=== PATIENT | female | born 1985 | race Two or more races ===

== ENCOUNTER 2022-09-18 17:10 | Inpatient (IN) | payer OTHER ==
[~2022-09-18] VITALS: Ht 162.6 cm; Wt 90.2 kg
[2022-09-18] MEDS ORDERED: InsuLIN R (HUMAN) 100 UNITS in SODIUM CHL 0.9% 99 ML IV SCH (17:30)
[2022-09-18] MEDS ORDERED: DEXTROSE (50%) 50ML SYRG IV PRN (17:30)
[2022-09-18] MEDS ORDERED: INSULIN LANTUS (GLARGINE) 1 /0.01ml (100units/ml) SC ONE (17:30)
[2022-09-18 17:51] LABS: Basophils # (auto) 0 10 ^3/uL (0-0.2); Basophils % (auto) 0.5 % (0.0-2.0); Eosinophils # (auto) 0 10 ^3/uL (0-0.8); Eosinophils % (auto) 0.1 % (0.0-7.0); Hematocrit 39.4 % (36.0-46.0); Hemoglobin 13.2 g/dL (12.2-16.2); Lymphocytes # (auto) 0.6 10 ^3/uL (0.4-5.4); Lymphocytes % (auto) 6.8 % (10.0-50.0); Mean Corpuscular Hemoglobin 33.5 pg (28.0-32.0); Mean Corpuscular Hgb Conc. 33.6 g/dL (32.0-36.0); Mean Corpuscular Volume 99.6 fL (80.0-100.0); Monocytes # (auto) 0.7 10 ^3/uL (0-1.3); Monocytes % (auto) 8.3 % (0.0-12.0); Neutrophils # (auto) 7.5 10 ^3/uL (1.6-8.6); Neutrophils % (auto) 84.3 % (37.0-80.0); Red Blood Cells 3.95 10^6/uL (4.0-5.20); Red Cell Distribution Width 18.1 % (11.8-14.3); White Blood Cell 8.9 10^3/uL (4.4-10.8)
[2022-09-18 18:05] LABS: BUN/Creatinine Ratio 8.8 (10.0-20.0); Calcium 9.4 mg/dL (8.5-10.1); Magnesium 2.7 mg/dL (1.6-2.6); Phosphorus 2.1 mg/dL (2.5-4.90)
[2022-09-18] MEDS ORDERED: SODIUM BICARBONATE 8.4 % INJ 50ML VIAL IV ONE (18:15)
[2022-09-18] MEDS ORDERED: SODIUM CHLORIDE 0.9% 2,000 ML IV ONE (18:15)
[2022-09-18 18:33] LABS: Potassium 2.2 mmol/L (3.5-5.1)
[2022-09-18] MEDS: ACCU-CHEK COMFORT CURVE STRIP VI SCH ×3 (18:42→21:51)
[2022-09-18] MEDS ORDERED: POTASSIUM CHL 20 Meq TABLET PO ONE (18:45)
[2022-09-18] MEDS ORDERED: POTASSIUM CHL 20MEQ/100ML 100 ML IV ONE ×3 (18:45→21:45)
[2022-09-18] MEDS: SODIUM CHLORIDE 0.9% 1,000 ML IV SCH ×3 (19:15→22:26)
[2022-09-18] MEDS ORDERED: SODIUM CHLORIDE 0.9% 1,000 ML IV SCH ×2 (21:30→23:30)
[2022-09-18] MEDS ORDERED: POTASSIUM EFFERVESENT TAB 25 MEQ PO ONE ×2 (21:45)
[2022-09-18] MEDS ORDERED: ACETAMINOPHEN 325 MG TAB PO PRN (22:00)
[2022-09-18] MEDS ORDERED: NITROGLYCERIN 0.4 MG SL TAB SL PRN (22:00)
[2022-09-18] MEDS ORDERED: PANTOPRAZOLE 40 MG/10 ML VIAL INJ IV ONE (22:00)
[2022-09-18] MEDS ORDERED: MORPHINE SULFATE INJ 2 MG/ml SYRG IV PRN (22:00)
[2022-09-18 22:22] LABS: Cholesterol 226 mg/dL (< 200)
[2022-09-18 22:25] LABS: HDL Cholesterol 42 mg/dL (40-59); Triglycerides 612 mg/dL (< 150)
[2022-09-18 22:37] LABS: Albumin 2.3 g/dL (3.4-5.0)
[2022-09-18 22:40] LABS: BUN/Creatinine Ratio 10.6 (10.0-20.0); Bilirubin, Total 0.4 mg/dL (0.2-1.0); Total Protein 5.7 g/dL (6.4-8.2)
[2022-09-18 22:52] LABS: Potassium 2.1 mmol/L (3.5-5.1)
[2022-09-19] MEDS: ACCU-CHEK COMFORT CURVE STRIP VI SCH ×12 (00:17→20:52)
[2022-09-19] MEDS ORDERED: POTASSIUM CHL 20MEQ/100ML 100 ML IV ONE ×3 (00:23→01:30)
[2022-09-19 01:36] LABS: Urine Bacteria FEW /hpf (None Seen); Urine Blood 2+ /uL (Negative); Urine Budding Yeast FEW /hpf (None Seen); Urine Mucus FEW (None Seen); Urine Specific Gravity 1.009 (1.001-1.035); Urine WBC 5 /hpf (0 - 5)
[2022-09-19] MEDS: SODIUM CHLORIDE 0.9% 1,000 ML IV SCH (06:20)
[2022-09-19 06:59] LABS: Basophils # (auto) 0 10 ^3/uL (0-0.2); Lymphocytes # (auto) 1.7 10 ^3/uL (0.4-5.4); Monocytes # (auto) 0.7 10 ^3/uL (0-1.3); Nucleated Red Blood Cells % 0.1 %; White Blood Cell 8.3 10^3/uL (4.4-10.8)
[2022-09-19 07:01] LABS: Basophils % (auto) 0.6 % (0.0-2.0); Eosinophils # (auto) 0.1 10 ^3/uL (0-0.8); Eosinophils % (auto) 0.7 % (0.0-7.0); Hematocrit 35.5 % (36.0-46.0); Hemoglobin 12.5 g/dL (12.2-16.2); Mean Corpuscular Hemoglobin 33.8 pg (28.0-32.0); Mean Corpuscular Hgb Conc. 35.3 g/dL (32.0-36.0); Mean Corpuscular Volume 95.9 fL (80.0-100.0); Neutrophils # (auto) 5.8 10 ^3/uL (1.6-8.6); Neutrophils % (auto) 69.7 % (37.0-80.0); Red Cell Distribution Width 18.2 % (11.8-14.3)
[2022-09-19 07:04] LABS: Albumin 2.7 g/dL (3.4-5.0); BUN/Creatinine Ratio 6.7 (10.0-20.0); Bilirubin, Total 0.6 mg/dL (0.2-1.0); Calcium 8.6 mg/dL (8.5-10.1); Total Protein 6.5 g/dL (6.4-8.2)
[2022-09-19 07:07] LABS: Potassium 2.7 mmol/L (3.5-5.1)
[2022-09-19] MEDS ORDERED: POTASSIUM CHL 20 Meq TABLET PO ONE ×2 (07:30→08:41)
[2022-09-19] MEDS: ENOXAPARIN SOD 40 MG/0.4 ML SYRINGE SC SCH (08:34)
[2022-09-19] MEDS: PANTOPRAZOLE 40 MG/10 ML VIAL INJ IV SCH (08:34)
[2022-09-19] MEDS ORDERED: DEXTROSE (50%) 50ML SYRG IV PRN (14:00)
[2022-09-19] MEDS: SOD CHL 0.45% WITH 20MEQ KCL 1,000 ML IV SCH (15:08)
[2022-09-19] MEDS ORDERED: INSU1INJ19 SC ×2 (15:32)
[2022-09-19] MEDS ORDERED: ATOR-47 PO (15:32)
[2022-09-19] MEDS ORDERED: BLOO1KIT60 XX (15:32)
[2022-09-19] MEDS: INSULIN LANTUS (GLARGINE) 1 /0.01ml (100units/ml) SC SCH (15:34)
[2022-09-19] MEDS: InsuLIN REG 1unit/0.01ml Soln (100units/ml) SC SCH ×2 (15:35→20:52)
[2022-09-19 15:38] LABS: Albumin 2.4 g/dL (3.4-5.0); BUN/Creatinine Ratio 8.2 (10.0-20.0); Bilirubin, Total 0.6 mg/dL (0.2-1.0); Calcium 8.3 mg/dL (8.5-10.1); Total Protein 5.8 g/dL (6.4-8.2)
[2022-09-19 15:42] LABS: Potassium 2.5 mmol/L (3.5-5.1)
[2022-09-19] MEDS ORDERED: POTASSIUM EFFERVESENT TAB 25 MEQ GT ONE (16:15)
[2022-09-19] MEDS: cefTRIAXone 1GM/50ML D5W 50 ML IV SCH (16:59)
[2022-09-19] MEDS: ATORVASTATIN 20 MG TAB PO SCH (22:13)
[2022-09-20] MEDS: ACCU-CHEK COMFORT CURVE STRIP VI SCH ×7 (00:20→23:09)
[2022-09-20] MEDS: InsuLIN REG 1unit/0.01ml Soln (100units/ml) SC SCH ×7 (00:26→23:24)
[2022-09-20] MEDS: SOD CHL 0.45% WITH 20MEQ KCL 1,000 ML IV SCH ×3 (00:31→18:59)
[2022-09-20 07:05] LABS: Albumin 2.4 g/dL (3.4-5.0); Bilirubin, Total 0.5 mg/dL (0.2-1.0); Calcium 8.3 mg/dL (8.5-10.1); Total Protein 5.6 g/dL (6.4-8.2)
[2022-09-20 07:10] LABS: Potassium 2.2 mmol/L (3.5-5.1)
[2022-09-20] MEDS: cefTRIAXone 1GM/50ML D5W 50 ML IV SCH (09:34)
[2022-09-20] MEDS: ENOXAPARIN SOD 40 MG/0.4 ML SYRINGE SC SCH (09:35)
[2022-09-20] MEDS: PANTOPRAZOLE 40 MG/10 ML VIAL INJ IV SCH (09:35)
[2022-09-20] MEDS: INSULIN LANTUS (GLARGINE) 1 /0.01ml (100units/ml) SC SCH (09:38)
[2022-09-20] MEDS ORDERED: POTASSIUM CHLORIDE 20 MEQ, LIDOCAINE 1% (LOCAL ANESTH.) 2 ML in SODIUM CHL 0.9% 100 ML IV ONE (11:15)
[2022-09-20] MEDS ORDERED: POTASSIUM EFFERVESENT TAB 25 MEQ PO ONE (12:00)
[2022-09-20] MEDS ORDERED: DEXTROSE (50%) 50ML SYRG IV PRN (12:30)
[2022-09-20 15:00] VITALS: BP 115/68
[2022-09-20 15:43] LABS: Magnesium 2.2 mg/dL (1.6-2.6); Potassium 3.4 mmol/L (3.5-5.1)
[2022-09-20 17:00] VITALS: BP 134/81
[2022-09-20 22:00] VITALS: BP 125/73
[2022-09-20] MEDS: ATORVASTATIN 20 MG TAB PO SCH (23:09)
[2022-09-21] MEDS: ACCU-CHEK COMFORT CURVE STRIP VI SCH ×4 (04:12→16:09)
[2022-09-21] MEDS: InsuLIN REG 1unit/0.01ml Soln (100units/ml) SC SCH ×3 (04:13→11:54)
[2022-09-21 05:00] VITALS: BP 112/62
[2022-09-21] MEDS: SOD CHL 0.45% WITH 20MEQ KCL 1,000 ML IV SCH (06:49)
[2022-09-21 08:00] VITALS: BP 126/73
[2022-09-21] MEDS ORDERED: CEPH-510 PO (09:10)
[2022-09-21] MEDS ORDERED: INSU1INJ19 SC (09:10)
[2022-09-21] MEDS: cefTRIAXone 1GM/50ML D5W 50 ML IV SCH (09:26)
[2022-09-21 09:27] LABS: BUN/Creatinine Ratio 6.5 (10.0-20.0)
[2022-09-21 09:28] LABS: Potassium 2.6 mmol/L (3.5-5.1)
[2022-09-21] MEDS: PANTOPRAZOLE 40 MG/10 ML VIAL INJ IV SCH (09:30)
[2022-09-21] MEDS: ENOXAPARIN SOD 40 MG/0.4 ML SYRINGE SC SCH (09:30)
[2022-09-21] MEDS ORDERED: POTASSIUM EFFERVESENT TAB 25 MEQ PO ONE (09:45)
[2022-09-21] MEDS ORDERED: INSULIN LANTUS (GLARGINE) 1 /0.01ml (100units/ml) SC SCH (10:00)
[2022-09-21] MEDS ORDERED: POTASSIUM EFFERVESENT TAB 25 MEQ PO SCH (10:00)
[2022-09-21] MEDS ORDERED: POTASSIUM CHLORIDE 40 MEQ, LIDOCAINE 1% (LOCAL ANESTH.) 4 ML in SODIUM CHL 0.9% 250 ML IV ONE (10:00)
[2022-09-21 12:00] VITALS: BP 103/59
== END 2022-09-21 16:30 | disposition home or self-care (01) | DRG 638 ==
LOC: EDBD 17:10 → ER 17:10 → TELE 21:57 → TELE-EAST 09-20 14:55
PROVIDERS: ADMIT Nurse Practitioner Family; ATTEND Nurse Practitioner Acute Care
DX: E11.10 Type 2 diabetes mellitus with ketoacidosis without coma (principal); L02.214 Cutaneous abscess of groin; L03.314 Cellulitis of groin; E87.6 Hypokalemia; E66.01 Morbid (severe) obesity due to excess calories; E78.5 Hyperlipidemia, unspecified; Z82.49 Family history of ischemic heart disease and other diseases of the circulatory system; Z83.3 Family history of diabetes mellitus; Z79.899 Other long term (current) drug therapy; Z79.4 Long term (current) use of insulin; Z68.34 Body mass index [BMI] 34.0-34.9, adult
CPT/HCPCS: 36415; 36600; 80048; 80053; 80061; 81001; 82010; 82805; 82962; 83036; 83735; 83930; 84100; 84132; 84443; 85025; 86803; 87205; 87340; 96361; 96365; 96375; C9113; G0378; J0696; J1815; J2001; J3480